=== PATIENT | female | born 1960 | race American Indian/Alaskan Native ===

== ENCOUNTER 2016-12-23 10:34 | Emergency (ER) | payer BC, MEDICARE ==
[2016-12-23 11:08] LABS: Basophils % (Auto) 0.1 % (0.0-1.8); Hemoglobin 13.9 gm/dl (10.1-14.3); Mean Corpuscular HGB Conc 36 % (30-34); Mean Corpuscular Hemoglobin 30 pg (28-32); Mean Corpuscular Volume 83 fl (79-97); Platelet Count 284 K/mm3 (140-440); Red Blood Count 4.68 M/mm3 (3.65-5.03); Red Cell Distribution Width 13.4 % (13.2-15.2); White Blood Count 3.1 K/mm3 (4.5-11.0)
[2016-12-23 11:16] LABS: Anion Gap 16 mmol/L; BUN/Creatinine Ratio 8.57; Blood Urea Nitrogen 6 mg/dL (7-17); Calcium 9.4 mg/dL (8.4-10.2); Carbon Dioxide 25 mmol/L (22-30); Chloride 101.5 mmol/L (98-107); Glucose 89 mg/dL (65-100); Potassium 3.6 mmol/L (3.6-5.0); Sodium 139 mmol/L (137-145)
--- NOTE | 2016-12-23 12:34 | Cat Scan Report ---
CRANIAL CT SCAN: History: Headache. Findings: Serial contiguous axial images were obtained through the cranium. Intravenous contrast material was not administered. The ventricles are normal in size and appearance. There is no mass effect or midline shift. No areas of abnormally increased or decreased attenuation are seen. No mass lesion is seen. The mastoid air cells and visualized portions of the sinuses are normal. IMPRESSION: Cranial CT scan within normal limits.
[2016-12-23] MEDS: BENADRYL IV ONE (13:05)
[2016-12-23] MEDS: MORPHINE IV ONE (13:05)
[2016-12-23] MEDS: REGLAN IV ONE (13:05)
[2016-12-23] MEDS: TORADOL IV ONE (13:06)
[2016-12-23] MEDS: NACL 0.9% 1000 ML 1,000 ML IV ONE (13:30)
[2016-12-23 15:04] LABS: Urine Drugs of Abuse Note Disclamer
[2016-12-23 15:16] LABS: Bilirubin,Urine NEG (Negative); Blood,Urine NEG (Negative); Ketones,Urine NEG (Negative); Leukocyte Esterase,Urine NEG (Negative); Mucus,Urine FEW /HPF; Nitrite,Urine NEG (Negative); Protein,Urine <15 mg/dL mg/dL (Negative); Urobilinogen,Urine < 2.0 mg/dL (<2.0)
--- NOTE | 2016-12-23 16:37 | Emergency Department Report ---
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 Patient is tearful secondary to depression and pain. Patient has complained of frontal headache typical for migraines for the past 2 weeks. Positive light sensitivity. No focal weakness or numbness reported. Patient crying stating that her children do not love her and a do not call her. History of suicidal thoughts in the past. No plan at this time because that would be mad at her. Patient stating that her neurologist or [place] [facility] and she also has neurologist at [facility]. She received a specific anticancer medication that seemed to help suppress her migraines in June but this medication has not been approved by her insurance here in [place]. - Related Data Home Medications Medication Instructions Recorded Confirmed Last Taken Cholecalciferol (Vitamin D3) 2,000 units PO DAILY 08/04/13 12/23/16 Unknown [Vitamin D3] Levothyroxine [Synthroid] 50 mcg PO DAILY 08/04/13 12/23/16 Unknown Multivitamin [Multi-Vitamin Daily] 1 tab PO DAILY 08/04/13 12/23/16 Unknown clonazePAM [KlonoPIN] 0.5 mg PO TID 08/04/13 12/23/16 Unknown Allergies Allergy/AdvReac Type Severity Reaction Status Date / Time codeine Allergy Itching Verified 08/04/13 23:46 ED Review of Systems ROS: Stated complaint: SUSHANT EVAL Other details as noted in HPI Comment: All other systems reviewed and negative Other: Constitutional: No fevers chills Eyes: No eye pain visual changes ENT: No ear pain or throat pain Neck: Denies pain Respiratory: Denies cough wheezing shortness of breath Cardiovascular: Denies chest pain, palpitations, syncope GI: Denies abdominal pain, nausea, vomiting, diarrhea : Denies dysuria Musculoskeletal: Denies back pain, joint swelling Skin: Denies rash, lesions, erythema Neurologic: Denies numbness, weakness Psychiatric: As per HPI ED Past Medical Hx - Past Medical History Previous Medical History?: Yes Hx Psychiatric Treatment: Yes (Depression) Additional medical history: Stiff person syndrome - Surgical History Hx Cholecystectomy: Yes Additional Surgical History: partial hysterectomy - Social History Smoking Status: Never Smoker Substance Use Type: None - Medications Home Medications: Home Medications Medication Instructions Recorded Confirmed Last Taken Type Cholecalciferol (Vitamin D3) 2,000 units PO DAILY 08/04/13 12/23/16 Unknown History [Vitamin D3] Levothyroxine [Synthroid] 50 mcg PO DAILY 08/04/13 12/23/16 Unknown History Multivitamin [Multi-Vitamin Daily] 1 tab PO DAILY 08/04/13 12/23/16 Unknown History clonazePAM [KlonoPIN] 0.5 mg PO TID 08/04/13 12/23/16 Unknown History ED Physical Exam - General Limitations: No Limitations - Other Other exam information: General: No limitations, patient is alert in no acute distress Head exam: Atraumatic, normocephalic Eyes exam: Normal appearance, pupils equal reactive to light, extraocular movements intact ENT: Moist mucous membrane, normal oropharynx Neck exam: Normal inspection, full range of motion, no meningismus nontender Respiratory exam: Clear to auscultation bilateral, no wheezes, rales, crackles Cardiovascular: Normal rate and rhythm, normal heart sounds Abdomen: Soft, nondistended, and nontender, with normal bowel sounds, no rebound, or guarding Extremity: Full range of motion normal inspection no deformity Back: Normal Inspection, full range of motion, no tenderness Neurologic: Alert, oriented x3, cranial nerves intact, no motor or sensory deficit Psychiatric: Depressed affect, tearful Skin: Warm, dry, intact ED Course Vital Signs 12/23/16 12/23/16 12/23/16 10:41 11:00 13:05 Temperature 98.9 F Pulse Rate 75 Respiratory 20 18 16 Rate Blood Pressure 129/88 O2 Sat by Pulse 100 99 Oximetry 12/23/16 13:06 Temperature Pulse Rate Respiratory 16 Rate Blood Pressure O2 Sat by Pulse Oximetry - Reevaluation(s) Reevaluation #1: 12/23/16 16:37 Patient treated morphine, Zofran, Toradol, Benadryl and Reglan. Pain improved and patient resting and no longer crying ED Medical Decision Making - Lab Data Result diagrams: 12/23/16 10:46 12/23/16 10:46 Lab Results 08/08/0612/23/16 12/23/16 Range/Units 10:46 10:46 10:46 WBC 3.1 L (4.5-11.0) K/mm3 RBC 4.68 (3.65-5.03) M/mm3 Hgb 13.9 (10.1-14.3) gm/dl Hct 39.0 (30.3-42.9) % MCV 83 (79-97) fl MCH 30 (28-32) pg MCHC 36 H (30-34) % RDW 13.4 (13.2-15.2) % Plt Count 284 (140-440) K/mm3 Lymph % (Auto) 45.9 H (13.4-35.0) % Whitley % (Auto) 10.4 H (0.0-7.3) % Eos % (Auto) 0.0 (0.0-4.3) % Baso % (Auto) 0.1 (0.0-1.8) % Lymph # 1.4 (1.2-5.4) K/mm3 Whitley # 0.3 (0.0-0.8) K/mm3 Eos # 0.0 (0.0-0.4) K/mm3 Baso # 0.0 (0.0-0.1) K/mm3 Seg Neutrophils % 43.6 (40.0-70.0) % Seg Neutrophils # 1.3 L (1.8-7.7) K/mm3 Sodium 139 (137-145) mmol/L Potassium 3.6 (3.6-5.0) mmol/L Chloride 101.5 (98-107) mmol/L Carbon Dioxide 25 (22-30) mmol/L Anion Gap 16 mmol/L BUN 6 L (7-17) mg/dL Creatinine 0.7 (0.7-1.2) mg/dL Estimated GFR > 60 ml/min BUN/Creatinine Ratio 8.57 % Glucose 89 (65-100) mg/dL Calcium 9.4 (8.4-10.2) mg/dL TSH (0.270-4.200) mlU/mL Free T4 (0.76-1.46) ng/dL Urine Color (Yellow) Urine Turbidity (Clear) Urine pH (5.0-7.0) Ur Specific Hazen (1.003-1.030) Urine Protein (Negative) mg/dL Urine Glucose (UA) (Negative) mg/dL Urine Ketones (Negative) mg/dL Urine Blood (Negative) Urine Nitrite (Negative) Urine Bilirubin (Negative) Urine Urobilinogen (<2.0) mg/dL Ur Leukocyte Esterase (Negative) Urine WBC (Auto) (0.0-6.0) /HPF Urine RBC (Auto) (0.0-6.0) /HPF U Epithel Cells (Auto) (0-13.0) /HPF Urine Mucus /HPF Urine Opiates Screen Urine Methadone Screen Ur Barbiturates Screen Ur Phencyclidine Scrn Ur Amphetamines Screen U Benzodiazepines Scrn Urine Cocaine Screen U Marijuana (THC) Screen Drugs of Abuse Note Plasma/Serum Alcohol < 0.01 (0-0.07) gm% 12/23/16 12/23/16 12/23/16 Range/Units 10:46 14:50 14:50 WBC (4.5-11.0) K/mm3 RBC (3.65-5.03) M/mm3 Hgb (10.1-14.3) gm/dl Hct (30.3-42.9) % MCV (79-97) fl MCH (28-32) pg MCHC (30-34) % RDW (13.2-15.2) % Plt Count (140-440) K/mm3 Lymph % (Auto) (13.4-35.0) % Whitley % (Auto) (0.0-7.3) % Eos % (Auto) (0.0-4.3) % Baso % (Auto) (0.0-1.8) % Lymph # (1.2-5.4) K/mm3 Whitley # (0.0-0.8) K/mm3 Eos # (0.0-0.4) K/mm3 Baso # (0.0-0.1) K/mm3 Seg Neutrophils % (40.0-70.0) % Seg Neutrophils # (1.8-7.7) K/mm3 Sodium (137-145) mmol/L Potassium (3.6-5.0) mmol/L Chloride (98-107) mmol/L Carbon Dioxide (22-30) mmol/L Anion Gap mmol/L BUN (7-17) mg/dL Creatinine (0.7-1.2) mg/dL Estimated GFR ml/min BUN/Creatinine Ratio % Glucose (65-100) mg/dL Calcium (8.4-10.2) mg/dL TSH 0.437 (0.270-4.200) mlU/mL Free T4 1.21 (0.76-1.46) ng/dL Urine Color Yellow (Yellow) Urine Turbidity Clear (Clear) Urine pH 7.0 (5.0-7.0) Ur Specific Hazen 1.006 (1.003-1.030) Urine Protein <15 mg/dl (Negative) mg/dL Urine Glucose (UA) Neg (Negative) mg/dL Urine Ketones Neg (Negative) mg/dL Urine Blood Neg (Negative) Urine Nitrite Neg (Negative) Urine Bilirubin Neg (Negative) Urine Urobilinogen < 2.0 (<2.0) mg/dL Ur Leukocyte Esterase Neg (Negative) Urine WBC (Auto) 1.0 (0.0-6.0) /HPF Urine RBC (Auto) 1.0 (0.0-6.0) /HPF U Epithel Cells (Auto) 1.0 (0-13.0) /HPF Urine Mucus Few /HPF Urine Opiates Screen Presumptive negative Urine Methadone Screen Presumptive negative Ur Barbiturates Screen Presumptive negative Ur Phencyclidine Scrn Presumptive negative Ur Amphetamines Screen Presumptive negative U Benzodiazepines Scrn Presumptive negative Urine Cocaine Screen Presumptive negative U Marijuana (THC) Screen Presumptive negative Drugs of Abuse Note Disclamer Plasma/Serum Alcohol (0-0.07) gm% - Radiology Data Radiology results: report reviewed (CT head: Normal) - Medical Decision Making Patient is medically clear for psychiatric admission for suicidal ideation. Pain improved with medications. Standing medications will be ordered for pain as needed - Differential Diagnosis migraine, depression, suicidal ideation, ICH, tension headache Critical Care Time: No Critical care attestation.: If time is entered above; I have spent that time in minutes in the direct care of this critically ill patient, excluding procedure time. ED Disposition Clinical Impression: Stiff person syndrome, Depression, Migraine headache, Medical clearance for psychiatric admission, Suicidal ideation Disposition: DC/TX-65 PSY HOSP/PSY UNIT Is pt being admited?: No Does the pt Need Aspirin: No Condition: Stable Time of Disposition: 16:40 (awaiting acceptance.)
[2016-12-23] MEDS ORDERED: FIORICET PO PRN (16:57)
[2016-12-23 20:01] VITALS: BP 110/72
[2016-12-23] MEDS: MOTRIN PO PRN (21:00)
[2016-12-24] MEDS: FLUSH HEPARIN IV ONE (01:00)
[2016-12-24] MEDS ORDERED: SYNTHROID PO SCH (06:00)
[2016-12-24] MEDS ORDERED: CHOLECALCIFEROL 2000 UNIT PO SCH (10:00)
[2016-12-24] MEDS ORDERED: NON-FORMULARY (Multivitamin [Multi-Vitamin Daily] 1 TAB) PO SCH (10:00)
[2016-12-24] MEDS ORDERED: THERAGRAN Tab PO SCH (10:00)
[2016-12-24] MEDS ORDERED: VITAMIN D3 PO SCH (10:00)
== END 2016-12-24 01:01 ==
LOC: EEVIPCON 10:34 → ED 10:34
DX: F32.9 Major depressive disorder, single episode, unspecified (principal); G25.82 Stiff-man syndrome; G43.909 Migraine, unspecified, not intractable, without status migrainosus; R45.851 Suicidal ideations
CPT/HCPCS: 36415; 70450; 80048; 80307; 81001; 84439; 84443; 85025; 96361; 96374; 96375; 99285; G0480; J1200; J1642; J1885; J2270; J2765; J7030; 80320

== ENCOUNTER 2017-09-26 11:15 | Outpatient (CLI) | payer BC, MEDICARE ==
--- NOTE | 2017-09-27 13:47 | Mammography Report ---
BILATERAL DIGITAL SCREENING MAMMOGRAM with CAD: 09/26/17 11:15:00 CLINICAL: Routine screening. COMPARISON:04/10/14 FINDINGS: There are scattered areas of fibroglandular density.Stable benign left hamartoma at 6 o'clock. Right asymmetries require additional imaging. No new architectural distortion or suspicious calcifications. IMPRESSION: Right asymmetries requiring additional workup. BI-RADS CATEGORY: 0--Needs Additional Imaging RECOMMENDATION: Recall for right MLO and CC spot magnification views and right breast ultrasound if needed. COMMENT: Patient follow-up letters are generated by our [employer] application.
== END 2017-09-26 11:16 | disposition home or self-care (01) ==
LOC: SPVWC 11:15
DX: Z12.31 Encounter for screening mammogram for malignant neoplasm of breast (principal)
CPT/HCPCS: 77067

== ENCOUNTER 2017-10-27 10:04 | Outpatient (CLI) | payer BC, MEDICARE ==
--- NOTE | 2017-10-27 11:17 | Mammography Report ---
RIGHT DIGITAL DIAGNOSTIC MAMMOGRAM : 10/27/17 10:04:00 CLINICAL: Recalled for asymmetry. COMPARISON:09/26/17 screening FINDINGS: Additional mammographic views were performed and are negative.Satisfactory effacement of asymmetries on spot magnification views. IMPRESSION: No mammographic evidence of malignancy. BI-RADS CATEGORY: 2 - - Benign RECOMMENDATION: Routine mammographic screening in one year. ACR BI-RADS MAMMOGRAPHIC CODES: 0 = Needs additional imaging evaluation; 1 = Negative; 2 = Benign; 3 = Probably benign; 4 = Suspicious; 5 = Malignant; 6 = Known biopsy-proven malignancy COMMENT: 1. Dense breast tissue, i.e., adenosis, fibrocystic changes, etc., may obscure an underlying neoplasm. 2. Approximately 10% of cancers are not detected with mammography. 3. A negative mammography report should not delay biopsy if a clinically suspicious mass is present. COMMENT: Patient follow-up letters are generated via our [employer] application.
== END 2017-10-27 10:05 | disposition home or self-care (01) ==
LOC: SPVWC 10:04
DX: N64.89 Other specified disorders of breast (principal); E03.9 Hypothyroidism, unspecified; Z82.49 Family history of ischemic heart disease and other diseases of the circulatory system; Z90.49 Acquired absence of other specified parts of digestive tract; Z90.710 Acquired absence of both cervix and uterus; Z98.51 Tubal ligation status

== ENCOUNTER 2021-05-09 10:48 | Emergency (ER) | payer MEDICARE ==
[2021-05-09] MEDS ORDERED: KETOROLAC 60 MG/2 ML INJ IM ONE (11:04)
--- NOTE | 2021-05-09 11:08 | Emergency Department Report ---
ED General Adult HPI - General Chief complaint: Abdominal Pain Stated complaint: LEFT KIDNEY PAIN AND SWELLING Time Seen by Provider: 05/09/21 10:58 Source: patient Mode of arrival: Ambulatory Limitations: Physical Limitation - History of Present Illness Initial comments: Patient is a 60-year-old female presents emergency room with complaints of "pain in her kidney." Patient states for over a week she has had left-sided flank pain. She states that she is also been having urinary symptoms. She reports that her doctor called her in [facility] and she completed the course. She states that she is also been taking Pyridium. She denies any fever, nausea, vomiting, diarrhea, vaginal bleeding, vaginal discharge. She denies any concerns for STDs. Allergy to codeine. Severity scale (0 -10): 5 - Related Data Home Medications Medication Instructions Recorded Confirmed Last Taken Cholecalciferol (Vitamin D3) 2,000 units PO DAILY 08/04/13 04/11/18 04/10/18 [Vitamin D3] Levothyroxine [Synthroid] 50 mcg PO DAILY 08/04/13 04/11/18 04/10/18 Multivitamin [Multi-Vitamin Daily] 1 tab PO DAILY 08/04/13 04/11/18 04/10/18 clonazePAM [KlonoPIN] 0.5 mg PO TID 08/04/13 04/11/18 04/10/18 Linzess 145 mcg PO DAILY 04/10/18 04/10/18 Unknown OLANZapine 5 mg PO DAILY 04/10/18 04/11/18 04/10/18 Phentermine HCl 37.5 mg PO DAILY 04/10/18 04/11/18 03/28/18 Venlafaxine 150 mg PO DAILY 04/10/18 04/11/18 04/10/18 Previous Rx's Medication Instructions Recorded Last Taken Type Naproxen 375 mg PO BID PRN #14 tablet 05/09/21 Unknown Rx methOCARBAMOL [Robaxin TAB] 500 mg PO BID PRN #14 tab 05/09/21 Unknown Rx Allergies Allergy/AdvReac Type Severity Reaction Status Date / Time codeine Allergy Itching Verified 12/23/16 20:13 C-AMINOPYRIDINE Allergy Unknown Uncoded 04/10/18 09:03 ED Review of Systems ROS: Stated complaint: LEFT KIDNEY PAIN AND SWELLING Other details as noted in HPI Comment: All other systems reviewed and negative ED Past Medical Hx - Past Medical History Hx Psychiatric Treatment: Yes (Depression) Additional medical history: Stiff person syndrome - Surgical History Hx Cholecystectomy: Yes Additional Surgical History: partial hysterectomy - Social History Smoking Status: Never Smoker - Medications Home Medications: Home Medications Medication Instructions Recorded Confirmed Last Taken Type Cholecalciferol (Vitamin D3) 2,000 units PO DAILY 08/04/13 04/11/18 04/10/18 His tory [Vitamin D3] Levothyroxine [Synthroid] 50 mcg PO DAILY 08/04/13 04/11/18 04/10/18 History Multivitamin [Multi-Vitamin Daily] 1 tab PO DAILY 08/04/13 04/11/18 04/10/18 History clonazePAM [KlonoPIN] 0.5 mg PO TID 08/04/13 04/11/18 04/10/18 History Linzess 145 mcg PO DAILY 04/10/18 04/10/18 Unknown History OLANZapine 5 mg PO DAILY 04/10/18 04/11/18 04/10/18 History Phentermine HCl 37.5 mg PO DAILY 04/10/18 04/11/18 03/28/18 History Venlafaxine 150 mg PO DAILY 04/10/18 04/11/18 04/10/18 History Naproxen 375 mg PO BID PRN #14 tablet 05/09/21 Unknown Rx methOCARBAMOL [Robaxin TAB] 500 mg PO BID PRN #14 tab 05/09/21 Unknown Rx ED Physical Exam - General Limitations: Physical Limitation General appearance: alert, in no apparent distress - Head Head exam: Present: atraumatic, normocephalic - Eye Eye exam: Present: normal appearance - ENT ENT exam: Present: mucous membranes moist - Respiratory Respiratory exam: Present: normal lung sounds bilaterally. Absent: respiratory distress, wheezes, rales, rhonchi, stridor, chest wall tenderness, accessory muscle use, decreased breath sounds, prolonged expiratory - Cardiovascular Cardiovascular Exam: Present: regular rate, normal rhythm, normal heart sounds. Absent: systolic murmur, diastolic murmur, rubs, gallop - GI/Abdominal GI/Abdominal exam: Present: soft, normal bowel sounds. Absent: distended, tenderness, guarding, rebound, rigid - Back Exam Back exam: Present: CVA tenderness (L) (mild). Absent: CVA tenderness (R) - Neurological Exam Neurological exam: Present: alert, oriented X3 - Psychiatric Psychiatric exam: Present: normal affect, normal mood - Skin Skin exam: Present: warm, dry, intact ED Course Vital Signs 05/09/21 05/09/21 10:50 15:14 Temperature 98.5 F Pulse Rate 95 H 90 Respiratory 18 16 Rate Blood Pressure 106/70 110/76 [Right] O2 Sat by Pulse 96 98 Oximetry ED Medical Decision Making - Lab Data Result diagrams: 05/09/21 11:12 05/09/21 11:12 - Radiology Data Radiology results: report reviewed Ordering Physician: TANO CHACON Date of Service: 05/09/21 Procedure(s): CT abdomen pelvis wo con Accession Number(s): [id number] cc: TANO CHACON CT OF THE ABDOMEN AND PELVIS WITHOUT CONTRAST INDICATION / CLINICAL INFORMATION: Left flank pain. TECHNIQUE: All CT scans at this location are performed using CT dose reduction for ALARA by means of automated exposure control. COMPARISON: None available. FINDINGS: ABDOMEN: The gallbladder is surgically absent. There is a 1 cm simple cyst in the left lobe of the liver. The bile ducts, pancreas, spleen, adrenal glands, kidneys and bowel demonstrate no significant abnormality. There are minimal atherosclerotic calcifications involving aorta without aneurysm. No adenopathy is seen. The lung bases are clear. PELVIS: The distal ureters and urinary bladder are normal. The uterus and ovaries are not identified. There is no evidence of adnexal mass or free fluid. A normal appendix is present and there is no evidence of diverticulitis. I do not identify a hernia. There is mild spondylosis. IMPRESSION: No acute abnormality is identified. Signer Name: Blayne Melgoza MD Signed: 05/09/2021 12:00 PM Workstation Name: [id number] Transcribed By: RT Dictated By: Blayne Melgoza MD Electronically Authenticated By: Blayne Melgoza MD Signed Date/Time: 05/09/21 1200 DD/ 1158 TD/TT: - Medical Decision Making Patient is a 60-year-old female presents emergency room with complaints of "pain in her kidney." Patient states for over a week she has had left-sided flank pain. She states that she is also been having urinary symptoms. She reports that her doctor called her in [place] and she completed the course. She states that she is also been taking Pyridium. She denies any fever, nausea, vomiting, diarrhea, vaginal bleeding, vaginal discharge. She denies any concerns for STDs. Allergy to codeine. Vitals are normal. On exam patient has mild left CVA tenderness. Labs are stable. UA was within normal limits. CT abdomen pel vis without contrast: IMPRESSION: No acute abnormality is identified. Patient given Toradol and Robaxin while in the emergency department as she did not drive with improvement of her symptoms. Patient given prescription for medications. Discussed all results with patient and advised to follow-up with her primary care doctor. Advised patient please take medication as prescribed as needed. Follow-up with your primary care doctor. Return to emergency room for any new or worsening symptoms. Critical care attestation.: If time is entered above; I have spent that time in minutes in the direct care of this critically ill patient, excluding procedure time. ED Disposition Clinical Impression: Flank pain Back pain Qualifiers: Back pain location: low back pain Chronicity: acute Back pain laterality: left Sciatica presence: without sciatica Qualified Code(s): M54.50 - Low back pain, unspecified Disposition: HOME / SELF CARE / HOMELESS Is pt being admited?: No Does the pt Need Aspirin: No Condition: Stable Instructions: Acute Back Pain, Adult, Abdominal Pain (ED) Additional Instructions: please take medication as prescribed as needed. Follow-up with your primary care doctor. Return to emergency room for any new or worsening symptoms. Prescriptions: Naproxen 375 mg PO BID PRN #14 tablet PRN Reason: pain methOCARBAMOL [Robaxin TAB] 500 mg PO BID PRN #14 tab PRN Reason: muscle spasm/pain Referrals: PRIMARY CARE, [Primary Care Provider] - 3-5 Days Time of Disposition: 15:07 Print Language: FRENCH
[2021-05-09 11:29] LABS: Hematocrit 40.7 % (30.3-42.9); Hemoglobin 14.1 gm/dl (10.1-14.3); Mean Corpuscular HGB Conc 35 % (30-34); Mean Corpuscular Volume 86 fl (79-97); Platelet Count 299 K/mm3 (140-440); Red Blood Count 4.72 M/mm3 (3.65-5.03); Red Cell Distribution Width 13.3 % (13.2-15.2)
[2021-05-09 11:49] LABS: Alanine Aminotransferase 25 units/L (7-56); Albumin 4.7 g/dL (3.9-5); BUN/Creatinine Ratio 8; Blood Urea Nitrogen 7 mg/dL (7-17); Calcium 10.1 mg/dL (8.4-10.2); Hemolysis Index 14
--- NOTE | 2021-05-09 12:05 | Cat Scan Report ---
CT OF THE ABDOMEN AND PELVIS WITHOUT CONTRAST INDICATION / CLINICAL INFORMATION: Left flank pain. TECHNIQUE: All CT scans at this location are performed using CT dose reduction for ALARA by means of automated exposure control. COMPARISON: None available. FINDINGS: ABDOMEN: The gallbladder is surgically absent. There is a 1 cm simple cyst in the left lobe of the li alexi. The bile ducts, pancreas, spleen, adrenal glands, kidneys and bowel demonstrate no significant a bnormality. There are minimal atherosclerotic calcifications involving aorta without aneurysm. No messi nopathy is seen. The lung bases are clear. PELVIS: The distal ureters and urinary bladder are normal. The uterus and ovaries are not identified. There is no evidence of adnexal mass or free fluid. A normal appendix is present and there is no jesús dence of diverticulitis. I do not identify a hernia. There is mild spondylosis. IMPRESSION: No acute abnormality is identified. Signer Name: Blayne Melgoza MD Signed: 05/09/2021 12:00 PM Workstation Name: [id number]
[2021-05-09 14:36] LABS: Total Cells Counted 100
[2021-05-09 14:37] LABS: RBC Morphology Normal
[2021-05-09 14:57] LABS: Bilirubin,Urine NEG (Negative); Blood,Urine NEG (Negative); Color,Urine Straw (Yellow); Protein,Urine <15 mg/dL mg/dL (Negative); Urobilinogen,Urine < 2.0 mg/dL (<2.0); WBC,Urine < 1.0 /HPF (0.0-6.0)
[2021-05-09 15:15] VITALS: BP 110/76
== END 2021-05-09 15:15 | disposition home or self-care (01) ==
LOC: ED 10:48
DX: R10.9 Unspecified abdominal pain (principal); M54.50 Low back pain, unspecified; Z90.49 Acquired absence of other specified parts of digestive tract; Z88.5 Allergy status to narcotic agent
CPT/HCPCS: 36415; 74176; 80053; 81001; 85007; 85025; 96372; 99284; J1885